=== PATIENT | male | born 1955 | race Caucasian/White ===

== ENCOUNTER → 2018-08-28 | Outpatient (CLI) | payer OTHER ==
[~2018-08-28] MED LIST: AUGMENTIN 875-1 EACH PO; BENICAR 5 MG5 M1 PO; LORTAB 5 MG/5001 TA1 PO; MOBIC15 MG PO; NORCO 5-325 TA1 EACH PO; OXECTA5 MG PO
== END ==
LOC: RAD 12:50
DX: R05 Cough (principal); M47.814 Spondylosis without myelopathy or radiculopathy, thoracic region; M25.78 Osteophyte, vertebrae; Z85.79 Personal history of other malignant neoplasms of lymphoid, hematopoietic and related tissues

== ENCOUNTER → 2018-11-08 | Outpatient (CLI) | payer OTHER | LOC: RAD 09:46 | DX: R05 Cough (principal) ==

== ENCOUNTER → 2019-10-22 | Outpatient (CLI) | payer OTHER | LOC: ULTRA 14:05 | DX: E07.89 Other specified disorders of thyroid (principal); E04.2 Nontoxic multinodular goiter; C90.01 Multiple myeloma in remission; R59.1 Generalized enlarged lymph nodes ==

== ENCOUNTER → 2019-11-07 | Outpatient (CLI) | payer OTHER ==
--- NOTE | 2019-11-12 14:07 | PATH ---
[facility] [address] [place] [address] PATHOLOGY RPT PROCEDURE Name: HARRIS OSCAR Room #: REG JAMES Tavarez.#: [id number] Admission: 11/07/19 Date of : 55 Discharge: Report #: [id number] Path Case #: [id number] [facility] Accession Number: [id number] . 01 Material submitted: . lymph node - ENLARGED NODE SUPERIOR RIGHT NECK. Modifiers: right, superior, neck . 01 Clinical history: . 1.3 cm right thyroid nodule, 3 cm right neck mass. History of multiple myeloma in remission. . 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 (IUV:health care technician; 11/11/2019) MBR 11/11/2019 1246 Local . 02 Comment: Examination shows a basaloid neoplasm surrounded by dense lymphoplasmacytic infiltrate. Salivary gland tissue, or thyroid gland tissue is not identified within the biopsy material reviewed. There is no keratinization identified as well. Multiple properly controlled immunohistochemical stains are performed on block A1. The tumor shows strong nuclear reactivity with p63 immunohistochemical stain and strong membranous reactivity with CK7. The tumor is nonreactive to TTF-1, thyroglobulin, CK20, and thrombomodulin. The nonreactive immunohistochemical stains argue against a primary thyroid neoplasm, a gastrointestinal neoplasm, or a metastatic urothelial carcinoma. 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 However, the differential diagnosis includes a poorly differentiated carcinoma of thyroid origin as well. Please correlate clinically. . Moose Hunter H and E slides were co-reviewed by Dr. Alejandra Kathleen who concurs with my diagnosis. Findings of this case are discussed with Dr. Lilo Ruelas at approximately 11:05 a.m. on 11/11/2019. . (IUV:health care technician; 11/11/2019) . 02 Addendum: . This addendum is issued subsequent to reviewing a properly controlled p16 immunohistochemical stain performed on block A1. It shows strong diffuse reactivity present. The originally rendered diagnosis and interpretation remain unchanged. (IUV/db; 11/12/2019) . [address] [address] PATHOLOGY RPT PROCEDURE Name: HARRIS OSCAR Room #: REG JAMES Gates#: [id number] Admission: 11/07/19 Date of : 55 Discharge: Report #: [id number] Path Case #: [id number] [facility], [address] [facility] , [place] [address]. Technical services performed by [facility] at [address] [place] [address], [address], [place] [address]. LBQ/11/12/2019 Addendum Electronically Signed by Chloé Ledezma MD, Pathologist . 02 Electronically signed: . Chloé Ledezma MD, Pathologist NPI- [id number] . 01 Gross description: . Received in formalin labeled "Indra, Harris, enlarged node superior right neck" are multiple cylindrical soft tissue cores and fragments measuring in aggregate 1.0 x 0.6 x 0.1 cm. The specimen is submitted entirely in A1-A2. ([facility]; 11/09/2019) [facility] 11/11/2019 1239 Local . 02 Pathologist provided ICD-10: C76.0 . 02 CPT . 720793, K57284, L58395 Specimen Comment: A courtesy copy of this report has been sent to [phone] Specimen Comment: [phone], Specimen Comment: Report sent to ,DR RICHMOND / DR HOGUE Specimen Comment: A duplicate report has been generated due to demographic updates. Performed at: [address], [place], [place] [id number] MD Juan F Sol MD Phone: [phone] Performed at: 02 [facility] [address] [facility], [place], [place] [id number] MD Chloé Ledezma MD Phone: [phone]
--- NOTE | 2019-11-13 13:08 | PATH ---
[facility] [place] [address] PATHOLOGY RPT PROCEDURE Name: JUANA OSCAR Room #: REG [facility].#: [id number] Admission: 11/07/19 Date of : 55 Discharge: Report #: [id number] Path Case #: [id number] Note [facility] Accession Number: [id number] TESTS RESULT FLAG UNITS REF RANGE LAB Clinician Provided Cytology Information No. of containers..01 Other (Miscellaneous) Source: [A] 01 RIGHT THYROID NODULE DIAGNOSIS: [A] 02 RIGHT THYROID NODULE, FINE NEEDLE ASPIRATION POSITIVE FOR MALIGNANT CELLS. B[place]DA CATEGORY . SQUAMOUS CELL CARCINOMA. THIS INTERPRETATION INCLUDES EVALUATION OF A CELL BLOCK. Comment: Examination shows dense colloid, groups of malignant epithelial cells in three dimensional clusters with nuclear overlapping and a few cleared nuclei. Based on the morphology, the differential diagnosis includes papillary thyroid carcinoma, a follicular neoplasm including Hurthle cell neoplasm as well as a squamous cell carcinoma. The concurrent biopsy tissue [id number], showed a basaloid squamous cell carcinoma. Please refer to a separate report for details. Dr. Alejandra Kathleen has seen this case and concurs with my interpretation. Findings of this case were discussed with Dr. Lilo Ruelas at 11:05 AM on 11/11/2019. Pathologist ICD10: 02 C73 Signed out by: 02 Chloé Ledezma MD, Pathologist NPI- [id number] Performed by: Latoya Collado, Movie Theater Manager ([facility]) Gross description: 01 20ML, PINK, 2FX 2AD /LCS 11/07/2019 1842 Local FLAG LEGEND: L-Low Normal,H-High Normal,LL-Alert Low,HH-Alert High <-Panic Low,>-Panic High,A-Abnormal,AA-Critical Abnormal Performed at: 01 [place] [facility] [address] [place] [address] [address] [place] [address] Juan F Sol MD, 02 [facility] [address] [address] [address] PATHOLOGY RPT PROCEDURE Name: JUANA OSCAR Room #: REG [facility] Kody#: [id number] Admission: 11/07/19 Date of : 55 Discharge: Report #: [id number] Path Case #: [id number] Chloé Ledezma MD, Specimen Comment: A duplicate report has been generated due to demographic updates. Performed at: 01 [facility] [place] [address] [facility] [address], [place], [place] [id number] MD Juan F Sol MD Phone: [phone]
== END ==
LOC: ULTRA 09:11
DX: C73 Malignant neoplasm of thyroid gland (principal); C08.0 Malignant neoplasm of submandibular gland; I10 Essential (primary) hypertension; Z98.890 Other specified postprocedural states; Z79.899 Other long term (current) drug therapy; Z85.79 Personal history of other malignant neoplasms of lymphoid, hematopoietic and related tissues

== ENCOUNTER → 2021-01-26 | Outpatient (CLI) | payer OTHER, MEDICARE | LOC: RAD 12:09 | PROVIDERS: ATTEND Nurse Practitioner | DX: G44.51 Hemicrania continua (principal) ==

== ENCOUNTER 2021-08-25 15:35 | Inpatient (IN) | payer OTHER, MEDICARE ==
[~2021-08-25] VITALS: Ht 175.3 cm; Wt 73.8 kg
[2021-08-25 15:36] VITALS: BP 145/91
[2021-08-25 16:12] LABS: HEMATOCRIT 43.2 % (42.0-52.0); HEMOGLOBIN 14.5 gm/dL (14.0-18.0); MCH 35.8 pg (26.0-34.0); MCHC 33.6 g/dL (28.0-37.0); MCV 106.5 fL (80.0-100.0); RBC 4.06 mil/uL (4.50-6.00); RDW 17.8 % (10.5-14.5); WBC 3.3 thou/uL (4.0-11.0)
[2021-08-25 16:36] LABS: CALCIUM 8.6 mg/dL (8.5-10.1); POTASSIUM 3.6 mmol/L (3.5-5.1)
[2021-08-25 16:40] LABS: ALBUMIN 3.3 g/dL (3.4-5.0); TOTAL BILIRUBIN 0.8 mg/dL (0.2-1.0); TOTAL PROTEIN 6.2 g/dL (6.4-8.2)
[2021-08-25 16:47] LABS: APTT 24.9 Seconds (24.5-32.8); INR 0.98; PROTIME 10.7 Seconds (10.5-12.1)
[2021-08-25 18:44] VITALS: BP 114/70
[2021-08-26 00:13] VITALS: BP 126/70
[2021-08-26 00:40] LABS: HEMATOCRIT 41.2 % (42.0-52.0); HEMOGLOBIN 13.9 gm/dL (14.0-18.0); MCH 35.8 pg (26.0-34.0); MCHC 33.8 g/dL (28.0-37.0); MCV 106.1 fL (80.0-100.0); PLATELET COUNT 63 thou/uL (150-400); RBC 3.88 mil/uL (4.50-6.00); RDW 18.5 % (10.5-14.5); WBC 3.2 thou/uL (4.0-11.0)
[2021-08-26 02:10] LABS: ABSOLUTE NEUTROPHILS 2.4 thou/uL (1.4-8.2); ANISOCYTOSIS 2+; ATYPICAL LYMPHS 4 %; BURR CELLS 4+; MACROCYTES 1+; NUCLEATED RBCS 2 /100WBC; PLATELET ESTIMATE DECREASED
[2021-08-26 02:56] VITALS: BP 129/86
--- NOTE | 2021-08-26 03:07 | NUR ---
Patient is an admit from ER patient present with DVT to left leg. Pt is currently on heparing drip. Admission assessment and education completed. No sign of distress noted in pt. Patient denies pain. No acute needs at this time. Pt is stable, vital signs stable. Continue to monitor, no further needs at this time.
[2021-08-26 08:26] VITALS: BP 132/91
[2021-08-26 11:18] VITALS: BP 111/57
[2021-08-26 11:38] LABS: FOLIC ACID 9.6 ng/mL (8.6-58.9)
[2021-08-26 15:27] VITALS: BP 114/59
[2021-08-26 19:45] VITALS: BP 109/66
[2021-08-27 03:35] VITALS: BP 131/72
--- NOTE | 2021-08-27 06:09 | NUR ---
NO ACUTE EVENTS THIS SHIFT. HEP GTT INFUSING PER PROTOCOL. SEE CHARTING FOR FURTHER DETAILS. PT IS MODERATELY FORGETFUL AT BASELINE, HE ATTRIBUTES THIS TO "CHEMO BRAIN". INDEPENDENT WITH ADLS. 2+ EDEMA LLE. LLE IS WARM TO TOUCH WITH PULSES PRESENT
[2021-08-27 11:30] VITALS: BP 125/83
--- NOTE | 2021-08-27 17:03 | NUR ---
Pt has been A&0x4, VS stable and afebrile throughout shift. Heparin drip was paused at 1300 and restarted at a lower dose at 1400 per protocol. Pt states some tenderness to touch on left leg but no pain. Left leg is warm to touch, 2+ edema. Pulses present. Pt has been resting in bed. No complaints of pain. Pt stated having poor appetite. Pt is up ad jenniffer and independent with ADLs. No current concernws. Continue to monitor.
[2021-08-27 20:15] VITALS: BP 132/102
--- NOTE | 2021-08-28 03:05 | NUR ---
ALERT AND ORIENTED DENIES NEEDS, REMAINS OH HEPARIN GTT, TITRATED PER PROTOCOL, SR ON TELE, DENIES PAIN OR SOA,LLE SWELLING NOTED, TENDER TO TOUCH, NO DISTRESS NOTED, WILL CONTINUE TO MONITOR AND FOLLOW POC
[2021-08-28 04:45] VITALS: BP 126/66
[2021-08-28 07:00] VITALS: BP 120/72
[2021-08-28 12:00] VITALS: BP 125/71
[2021-08-28 16:00] VITALS: BP 129/81
--- NOTE | 2021-08-28 18:22 | NUR ---
Pt has been A&0x4. VS stable and afebrile. SR on monitor. No complaints of pain. Heparin drip in place. Titrated per protocol. Edema present in LLE and Left foot. LLE is warm, firm and tender to touch. Pulses present. No current concerns. Continue to monitor.
[2021-08-28 19:40] VITALS: BP 117/79
[2021-08-28] MEDS ORDERED: NEURONTIN 400M400 M2 PO (22:19)
[2021-08-28] MEDS ORDERED: ACYCLOVIR 400400 MG PO (22:20)
[2021-08-28] MEDS ORDERED: ASA81BEC PO (22:21)
[2021-08-28] MEDS ORDERED: LEVOTHYROXINE112 MC1 PO (22:21)
[2021-08-28] MEDS ORDERED: REVLIMID5 MG PO (22:22)
[2021-08-28] MEDS ORDERED: ARTIFICIAL TEAR1510 OPHTHALMIC (22:22)
[2021-08-29 03:38] VITALS: BP 110/70
[2021-08-29 05:45] LABS: MCH 36.3 pg (26.0-34.0)
[2021-08-29 05:48] LABS: HEMOGLOBIN 12.5 gm/dL (14.0-18.0); MCHC 34.8 g/dL (28.0-37.0); MCV 104.3 fL (80.0-100.0); RBC 3.45 mil/uL (4.50-6.00); RDW 17.7 % (10.5-14.5)
[2021-08-29 05:52] LABS: CREATININE 0.7 mg/dL (0.7-1.3); POTASSIUM 3.7 mmol/L (3.5-5.1)
[2021-08-29 06:09] LABS: WBC 1.5 thou/uL (4.0-11.0)
[2021-08-29 07:00] VITALS: BP 119/78
--- NOTE | 2021-08-29 07:10 | HC ---
[facility] [place] [address] CONSULTATION Name: JUANA OSCAR Room #: 200-I ADM IN M.R.#: [id number] Admission: 08/25/21 Attend Phys: Luis Milian MD Discharge: Date of : 55 Report #: [id number] THIS REPORT FOR: cc: Kylie Garay DNP, Mary E. DNP McKittrick, Richard James MD ~ cc: Luis Milian MD, Fabiana Upton MD, Anthony Padilla MD, Dr. Scruggs, [facility] DATE OF SERVICE: 08/26/2021 REQUESTING PHYSICIAN: Dr. Luis Milian REASON FOR CONSULTATION: Left-sided DVT in setting of multiple myeloma, head and neck cancer, and thyroid cancer. HISTORY OF PRESENT ILLNESS: The patient is a pleasant 65-year-old male who does have trouble providing the history as he states he is having memory issues and it sounds like from talking with his nurse, his girlfriend had mentioned that he may have had a stroke causing some apraxia or memory issues several years ago. He cannot really tell me how long this has been going on, so some of his history is questionable. He does tell me that he has had troubles with leg swelling for only 2 or 3 days. He denies any recent trauma, any use of steroids, any testosterone, any skin infection, any prior damage to the leg or swelling. He denies any new headache trouble, though he does describe some headache trouble, but I think it is long-term in nature. No swallowing troubles. No fevers, no chills, no diarrhea, no constipation. No cough, no breathing troubles. No skin rash except for some mild ecchymosis on his arms and looks maybe from rubbing up against things. No blood in his urine or stool per his report. No trouble with his right leg. Imaging done since he was here included the ultrasound of the left leg, this shows extensive left lower extremity DVT with occlusive thrombus identified extending from the common femoral to below the knee. He also had a CTA chest done yesterday that showed no pulmonary thromboembolic disease. Mild bibasilar and peripheral predominant consolidative opacities that possibly represent multifocal infection. Followup CT chest is recommended in 3 months. Also destructive lytic changes in the sternal body compatible with history of multiple myeloma. LABORATORY DATA: His lab work here shows a creatinine of 1.0, normal electrolytes and liver functions, albumin 3.3 with a total protein of 6.2, free T4 of 1.0. Baseline INR was 0.98. Baseline APTT 24.9. White count was 3.3, hemoglobin 13.9, MCV 106.1, platelets 60 yesterday, today 63. I do note that previously in the [facility] records, he had platelet counts of 70,000 in 06/2021, 112,000 in 03/2021 and 137,000 in 10/2020. ANC is adequate. I do note there were 4 atypical lymphocytes mentioned on his peripheral smear. ANC was 2400. TSH 0.130. COVID was negative. [facility] [address] [place] [address] CONSULTATION Name: CELESTINAJUANA LEE Room #: 200-I ADM IN M.R.#: [id number] Admission: 08/25/21 Attend Phys: Luis Milian MD Discharge: Date of : 55 Report #: [id number] PHYSICAL EXAMINATION: GENERAL: The patient appears his stated age. VITAL SIGNS: Height is 5 feet 9 inches or 175.3 cm, weight 165.7 pounds or 75.2 kilograms. Blood pressure is 132/91, O2 sat 98, pulse 71, temperature afebrile at 97.9. HEENT: Face appears symmetrical. Oral without lesions. LYMPH NODES: Nonpalpable in the supraclavicular, cervical, axillary, inguinal region. The patient does have evidence of past surgery in his right neck. No reported new masses, nothing obviously new. HEART: Regular rate. LUNGS: Have good symmetric expansion without any definite wheezes, rales, or rhonchi. ABDOMEN: Scaphoid, without masses. EXTREMITIES: Upper extremities, benign. Note that the left lower extremity is slightly larger in the mid thigh and distally. Also, slight more bluish color compared to the normal yellow, red. The patient states this is improved. PAST MEDICAL HISTORY: Past history is notable for what sounds like multiple myeloma, originally diagnosed I believe in 2009. 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 He then had a stem cell transplant at [facility] 06/2010, was on CyBorD x1 year, then maintenance Velcade until 07/2017. He reports being on Revlimid 25 mg a day through the [facility], so we do not have any records in the [facility] system. He gave some history that maybe he was told to stop it or that he no longer need to be seen, it is unclear. He tried reaching out through a significant other, but she did not answer her phone. It looks like Dr. Upton also when she last saw him on 07/28 did not have records referring to them. The patient also has a history of on a PET scan finding bilateral tonsillar uptake and a biopsy of the neck mass in 10/2019 showing malignant cells consistent with squamous cell carcinoma. FNA of the thyroid was also positive for malignant cells, papillary thyroid. The patient underwent total thyroidectomy and central neck dissection and right modified radical neck dissection in 11/2019. Pathology confirmed papillary thyroid cancer in 4/31 lymph nodes and also one of the lymph nodes was positive for squamous cell carcinoma measuring 3.5 cm without extracapsular extension. Supposedly, p16 was diffusely positive. Reportedly, the subsequent testing with in situ hybridization for high risk HPV was documented negative. Received radiation therapy from December through February of [address] Anthony Padilla. For worsening paraproteins, he supposedly had a repeat bone marrow biopsy at the [facility] and subsequently began Velcade, Revlimid, and dexa in 11/2020 for relapsed multiple myeloma. He was hospitalized there in 12/2020 for shingles. He currently has been on Revlimid, but we do not know the status from the [place]. SOCIAL HISTORY: The patient was in the [employer]. He quit smoking a number of [facility] [address] [place] [address] CONSULTATION Name: JUANA OSCAR Room #: 200-I [facility].#: [id number] Admission: 08/25/21 Attend Phys: Luis Milian MD Discharge: Date of : 55 Report #: [id number] years ago. No recent alcohol. I do not think there is any street drug history. FAMILY HISTORY: Denies any blood clot issues or malignancies in his mother, father or siblings. ASSESSMENT AND PLAN: 1. Left leg DVT with negative CT angio chest. Agree with heparin anticoagulation. Given that he is improved, would seem reasonable at some point to transition to oral agent. Defer to interventional radiology the role for thrombolytics. 2. Thrombocytopenia, chronic in nature. Unclear how much of this is related to medications or his underlying disease. We will check B12, folate and iron levels. This also might help explain his macrocytosis. 3. Papillary thyroid cancer, on suppressive thyroid replacement per others. Note, this was node positive. 4. 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 Bola Padilla. 5. [place] light chain multiple myeloma, being followed per the [facility]. Note that Dr. Upton is trying to get records and she will likely follow up with him. 6. Macrocytosis, as above. We will check B12 and folate. <ELECTRONICALLY SIGNED> By: Nghia Kingsley MD 08/29/21 0710 0928 1053 Nghia Kingsley MD /nt
[2021-08-29] MEDS ORDERED: XARELTO15 MG PO (10:43)
[2021-08-29 12:12] LABS: HEMATOCRIT 34.5 % (42.0-52.0); HEMOGLOBIN 12.2 gm/dL (14.0-18.0); MCH 36.6 pg (26.0-34.0); MCHC 35.3 g/dL (28.0-37.0); MCV 103.7 fL (80.0-100.0); PLATELET COUNT 47 thou/uL (150-400); RBC 3.33 mil/uL (4.50-6.00); RDW 17.6 % (10.5-14.5)
[2021-08-29 12:15] VITALS: BP 119/78
[2021-08-29 12:17] LABS: WBC 1.6 thou/uL (4.0-11.0)
--- NOTE | 2021-08-29 12:21 | NUR ---
PATIENT ADMITTED FOR EXTENSIVE LLE DVT. CHART REVIEWED AND CASE DISCUSSED WITH CARE TEAM. CM MET WITH PT THIS DAY. CM ROLE INTRODUCED. PATIENT REPORTS HE LIVES AT HOME ALONE WITH 10 CATS. HE HAS A GIRLFRIEND HE REPORTS WHO CAN STAY WITH HIM SHOULD HE NEEDS HOWEVER PT REPORTS HE DOES NOT NEED HELP. HH FOR PT/ST NEEDS. SPOKE TO MAILE IN WHO REPORTED PT WOULD BENEFIT FROM COGNITIVE SUPPORT THROUGH ST. PT ALSO RECOMMEND HH ONCE PT MEDICALLY STABLE TO ME. PT INITALLY DENIED FOR NEED FOR ASST AT HOME. HE REPORTS HE DIDNT NEED IT. SPOKE TO HIM ABOUT BENEFITS AND HE AGREED. JUAN TO FOLLOW PT. PT REPORTS HE HAS NOT USED HH/SNF/REHAB SERVICES IN THE PAST. PT DENIES USE OF ASST DEVICES AT HOME AND REPORTS NO CONCERNS ONCE MEDICALLY STABLE TO DC. HE REPORTS HIS NEW PCP WILL BE DR GREENWOOD. NO FURTHER CM NEEDS AT THIS TIME.
[2021-08-29 12:40] VITALS: BP 116/69
[2021-08-29 13:24] VITALS: BP 119/78
--- NOTE | 2021-08-29 14:33 | NUR ---
Pt was discharged at 1430. Pt has A&0x4, VS stable and afebrile throughout shift. Discharge education was provided on new medications and continued plan of care (follow up appointments). Pt expressed understanding discharge education. No current concerns.
[2021-08-29 15:43] LABS: ATYPICAL LYMPHS 2 %
[2021-08-29 15:44] LABS: ANISOCYTOSIS 1+; MACROCYTES 1+
[2021-08-29 20:06] LABS: IgG 369 mg/dL (603-1613); IgM 79 mg/dL (20-172)
[2021-08-29 21:05] LABS: IgA 23 mg/dL (61-437)
[2021-08-30 12:07] LABS: KAPPA FREE LIGHT CHAINS 17.6 mg/L (3.3-19.4); KAPPA/LAMBDA RATIO 1.18 (0.26-1.65); LAMBDA FREE LIGHT CHAINS 14.9 mg/L (5.7-26.3)
== END 2021-08-29 14:45 | disposition home health service (06) | DRG 300 ==
LOC: ER 15:35 → EROBS 19:17 → 2N 19:17
PROVIDERS: Internal Medicine Hematology & Oncology; Nurse Practitioner; Nurse Practitioner Family; ADMIT Internal Medicine; ATTEND Internal Medicine
DX: I82.412 Acute embolism and thrombosis of left femoral vein (principal); C90.00 Multiple myeloma not having achieved remission; Z94.84 Stem cells transplant status; D69.6 Thrombocytopenia, unspecified; D75.89 Other specified diseases of blood and blood-forming organs; E07.81 Sick-euthyroid syndrome; Z20.822 Contact with and (suspected) exposure to COVID-19; D70.9 Neutropenia, unspecified; Z79.82 Long term (current) use of aspirin; Z79.899 Other long term (current) drug therapy; Z89.029 Acquired absence of unspecified finger(s); Z92.21 Personal history of antineoplastic chemotherapy; Z87.891 Personal history of nicotine dependence; Z86.73 Personal history of transient ischemic attack (TIA), and cerebral infarction without residual deficits; Z85.850 Personal history of malignant neoplasm of thyroid
CPT/HCPCS: 10081